=== PATIENT | female | born 1980 | race Caucasian/White ===

== ENCOUNTER 2018-09-21 12:19 | Emergency (ER) | payer MEDICAID, OTHER ==
[~2018-09-21] VITALS: Ht 172.7 cm; Wt 77.3 kg
[~2018-09-21 12:19] MED LIST: DIPH50 PO; DIVA500T2 PO; LURA40 PO
[2018-09-21] MEDS ORDERED: QUET100T PO (12:38)
[2018-09-21] MEDS ORDERED: DEXAMETHASONE 4 MG TABLET PO ONE (13:45)
[2018-09-21] MEDS ORDERED: KETOROLAC TROMETHAMINE 60 MG/2 ML VIAL IM ONE (13:45)
[2018-09-21] MEDS ORDERED: DIAZEPAM 5 MG/ML 2 ML SYRINGE IM ONE (13:45)
[2018-09-21] MEDS ORDERED: CYCLOBENZAPRINE HCL 10 MG TABLET PO ONE (14:00)
[2018-09-21 15:09] VITALS: BP 122/85
== END 2018-09-21 15:10 | disposition home or self-care (01) ==
LOC: EMS 12:21
DX: M62.838 Other muscle spasm (principal); Q68.0 Congenital deformity of sternocleidomastoid muscle; I10 Essential (primary) hypertension; E78.00 Pure hypercholesterolemia, unspecified; F32.9 Major depressive disorder, single episode, unspecified; F20.9 Schizophrenia, unspecified; F11.90 Opioid use, unspecified, uncomplicated; F14.90 Cocaine use, unspecified, uncomplicated; F15.90 Other stimulant use, unspecified, uncomplicated
CPT/HCPCS: 96372; 99283; J1885; J8540

== ENCOUNTER 2018-09-26 11:03 | Inpatient (IN) | payer MEDICAID, OTHER ==
[~2018-09-26] VITALS: Ht 172.7 cm; Wt 79.2 kg
[~2018-09-26 11:03] MED LIST changes: -DIPH50 PO; -DIVA500T2 PO; -LURA40 PO; +QUET100T PO
[2018-09-26] MEDS ORDERED: PRAZ1 PO (11:45)
[2018-09-26] MEDS ORDERED: ZIPR60CA2 PO (11:45)
[2018-09-26] MEDS ORDERED: NALT50TA6 PO (11:45)
[2018-09-26 12:14] LABS: AMPHET/METH SCREEN,URINE NEGATIVE (NEGATIVE); BARBITURATE SCREEN, URINE NEGATIVE (NEGATIVE); BENZODIAZEPINES SCREEN,URINE NEGATIVE (NEGATIVE); CANNABINOID SCREEN,URINE NEGATIVE (NEGATIVE); COCAINE SCREEN,URINE NEGATIVE (NEGATIVE); METHADONE SCREEN, URINE NEGATIVE (NEGATIVE); OPIATE SCREEN,URINE NEGATIVE (NEGATIVE)
[2018-09-26 12:15] LABS: PHENCYCLIDINE SCREEN,URINE NEGATIVE (NEGATIVE)
[2018-09-26] MEDS ORDERED: IBUPROFEN 400 MG TABLET PO PRN (12:15)
[2018-09-26] MEDS ORDERED: HALOPERIDOL 5 MG TABLET PO PRN (12:15)
[2018-09-26] MEDS ORDERED: ACETAMINOPHEN 325 MG TABLET PO PRN (12:15)
[2018-09-26] MEDS ORDERED: ZOLPIDEM TARTRATE 10 MG TABLET PO PRN (12:15)
[2018-09-26 12:16] LABS: BASOPHILS % (AUTO) 0.2 % (0.0-2.0); EOSINOPHILS % (AUTO) 0 % (1.0-6.0); HEMOGLOBIN 12.5 g/dL (12.0-16.0); LYMPHOCYTES # (AUTO) 0.8 K/uL (1.0-4.8); LYMPHOCYTES % (AUTO) 10.2 % (22.0-44.0); MEAN CORPUSCULAR HEMOGLOBIN 28.7 pg (26.0-34.0); MEAN CORPUSCULAR VOLUME 87 fL (80-100); MONOCYTES # (AUTO) 0.1 K/uL (0.1-1.0); MONOCYTES % (AUTO) 1.2 % (2.0-9.0); NEUTROPHILS # (AUTO) 6.8 K/uL (1.8-7.7); PLATELET COUNT (AUTO) 392 K/uL (150-450); RED BLOOD CELL COUNT(AUTO) 4.37 MIL/uL (4.00-5.20); RED CELL DISTRIBUTION WIDTH 13.4 % (11.5-14.5)
[2018-09-26 12:17] LABS: NEUTROPHILS % (AUTO) 88.4 % (40.0-70.0)
[2018-09-26 12:24] LABS: ANION GAP 11 mmol/L (8-16); CARBON DIOXIDE 24 mmol/L (22-29); CHLORIDE 104 mmol/L (98-107); CREATININE 0.74 mg/dL (0.60-1.30); GLOMERULAR FILTR. RATE CALC > 60 mL/min (>60); GLUCOSE,RANDOM 169 mg/dL (70-110); POTASSIUM 4.2 mmol/L (3.5-5.1); SODIUM SERUM 139 mmol/L (136-145); UREA NITROGEN, BLOOD 19 mg/dL (7-18)
[2018-09-26 12:43] LABS: APPEARANCE,URINE CLEAR (CLEAR); BILIRUBIN,URINE NEGATIVE (NEGATIVE); GLUCOSE, URINE (UA) NEGATIVE (NEGATIVE); KETONES,URINE NEGATIVE (NEGATIVE); LEUKOCYTE ESTERASE ,URINE MODERATE (NEGATIVE); NITRATE,URINE NEGATIVE (NEGATIVE); OCCULT BLOOD,URINE NEGATIVE (NEGATIVE); PH,URINE 5.5 (5.0-8.0); PROTEIN,URINE NEGATIVE (NEGATIVE); UROBILINOGEN,URINE 0.2 mg/dL (<=1.0)
[2018-09-26 12:51] LABS: ALANINE AMINOTRANSFERASE 41 U/L (12-78); ALBUMIN 3.7 g/dL (3.4-5.0); ALKALINE PHOSPHATASE 67 U/L (46-116); ASPARTATE AMINOTRANSFERASE 20 U/L (15-37); BILIRUBIN,TOTAL 0.3 mg/dL (0.1-1.0); HCG,QUANTITATIVE < 1 mIU/mL (0-6)
[2018-09-26 13:07] LABS: BACTERIA,URINE Rare /HPF (None Seen); RBC,URINE 0-2 /HPF (0-2); SQUAMOUS EPITHELIAL CELL,UR Few /LPF (None Seen)
[2018-09-26 20:12] VITALS: BP 123/83
[2018-09-26] MEDS ORDERED: PNEUMOCOCCAL VACCINE POLYVALENT 0.5 ML VIAL [PPSV23] IM ONE (21:00)
[2018-09-26] MEDS: LORazepam 2 MG TABLET PO PRN (21:40)
[2018-09-27 02:26] VITALS: BP 123/83
[2018-09-27 08:30] VITALS: BP 140/82
[2018-09-27] MEDS: LORazepam 2 MG TABLET PO PRN (09:10)
[2018-09-27 09:12] LABS: BASOPHILS % (AUTO) 0.5 % (0.0-2.0); EOSINOPHILS % (AUTO) 0.9 % (1.0-6.0); HEMATOCRIT 39.5 % (36-46); HEMOGLOBIN 12.9 g/dL (12.0-16.0); LYMPHOCYTES % (AUTO) 36.6 % (22.0-44.0); MEAN CORPUSCULAR HGB CONC 32.7 G/dL (31.0-37.0); MEAN CORPUSCULAR VOLUME 89 fL (80-100); MONOCYTES # (AUTO) 0.5 K/uL (0.1-1.0); MONOCYTES % (AUTO) 6.4 % (2.0-9.0); NEUTROPHILS # (AUTO) 4.6 K/uL (1.8-7.7); NEUTROPHILS % (AUTO) 55.6 % (40.0-70.0); PLATELET COUNT (AUTO) 388 K/uL (150-450); RED BLOOD CELL COUNT(AUTO) 4.46 MIL/uL (4.00-5.20); RED CELL DISTRIBUTION WIDTH 13.9 % (11.5-14.5)
[2018-09-27 09:23] LABS: AMPHET/METH SCREEN,URINE NEGATIVE (NEGATIVE); BARBITURATE SCREEN, URINE NEGATIVE (NEGATIVE); BENZODIAZEPINES SCREEN,URINE NEGATIVE (NEGATIVE); CANNABINOID SCREEN,URINE NEGATIVE (NEGATIVE); COCAINE SCREEN,URINE NEGATIVE (NEGATIVE); METHADONE SCREEN, URINE NEGATIVE (NEGATIVE); OPIATE SCREEN,URINE NEGATIVE (NEGATIVE)
[2018-09-27 09:26] LABS: PHENCYCLIDINE SCREEN,URINE NEGATIVE (NEGATIVE)
[2018-09-27 09:30] LABS: HEMOGLOBIN A1C 5.5 % (4.5-6.2)
[2018-09-27] MEDS ORDERED: DOCUSATE SODIUM 100 MG CAPSULE PO PRN (09:30)
[2018-09-27] MEDS ORDERED: ONDANSETRON HCL 4 MG TABLET PO PRN (09:30)
[2018-09-27] MEDS ORDERED: ALBUTEROL SULFATE HFA 90 MCG/PUFF 8 GM INHALER IH PRN (09:30)
[2018-09-27] MEDS ORDERED: GuaiFENesin/D-METHORPHAN [SUGAR-FREE] 200-20MG/10 ML SYRUP UDCUP PO PRN (09:30)
[2018-09-27] MEDS ORDERED: MAGNESIUM HYDROXIDE SUSPENSION 30 ML UDCUP PO PRN (09:30)
[2018-09-27] MEDS ORDERED: CloNIDine HCL 0.1 MG TABLET PO PRN (09:30)
[2018-09-27] MEDS ORDERED: LOPERAMIDE HCL 2 MG CAPSULE PO PRN (09:30)
[2018-09-27] MEDS ORDERED: MAG HYDROX/AL HYDROX/SIMETH ES 30 ML SUSPENSION UDCUP PO PRN (09:30)
[2018-09-27] MEDS ORDERED: PETROLATUM,WHITE 28 GM JELLY TP PRN (09:30)
[2018-09-27] MEDS ORDERED: ACETAMINOPHEN 325 MG TABLET PO PRN (09:30)
[2018-09-27 09:40] LABS: ALANINE AMINOTRANSFERASE 35 U/L (12-78); ALBUMIN 3.6 g/dL (3.4-5.0); ALKALINE PHOSPHATASE 62 U/L (46-116); ANION GAP 10 mmol/L (8-16); ASPARTATE AMINOTRANSFERASE 17 U/L (15-37); BILIRUBIN,TOTAL 0.3 mg/dL (0.1-1.0); CALCIUM, TOTAL 8.8 mg/dL (8.8-10.5); CARBON DIOXIDE 28 mmol/L (22-29); CHLORIDE 100 mmol/L (98-107); CHOL/HDL RATIO 1.8 (3.9-5.7); CHOLESTEROL 194 mg/dL (131-200); CREATININE 0.71 mg/dL (0.60-1.30); GLOMERULAR FILTR. RATE CALC > 60 mL/min (>60); GLUCOSE,RANDOM 106 mg/dL (70-110); HDL CHOLESTEROL 106 mg/dL (40-60); LDL CHOL (CALC.) 64 mg/dL (0-130); SODIUM SERUM 138 mmol/L (136-145); THYROID STIMULATING HORMONE 0.67 uIU/mL (0.36-3.74); TOTAL PROTEIN, SERUM 7.4 g/dL (6.4-8.2); TRIGLYCERIDES 118 mg/dL (15-150); UREA NITROGEN, BLOOD 23 mg/dL (7-18)
[2018-09-27 09:43] LABS: APPEARANCE,URINE TURBID (CLEAR); BILIRUBIN,URINE NEGATIVE (NEGATIVE); GLUCOSE, URINE (UA) NEGATIVE (NEGATIVE); KETONES,URINE NEGATIVE (NEGATIVE); LEUKOCYTE ESTERASE ,URINE LARGE (NEGATIVE); NITRATE,URINE NEGATIVE (NEGATIVE); OCCULT BLOOD,URINE NEGATIVE (NEGATIVE); PROTEIN,URINE NEGATIVE (NEGATIVE)
[2018-09-27] MEDS: NICOTINE 14 MG/24 HOUR PATCH TD PRN (09:48)
[2018-09-27 10:01] LABS: BACTERIA,URINE Many /HPF (None Seen); RBC,URINE None Seen /HPF (0-2); SQUAMOUS EPITHELIAL CELL,UR Few /LPF (None Seen)
[2018-09-27] MEDS: IBUPROFEN 400 MG TABLET PO PRN (10:10)
[2018-09-27] MEDS: ARIPiprazole 5 MG TABLET PO SCH (12:54)
[2018-09-27] MEDS: BENZOCAINE 20% 11.9 GM GEL TP PRN (12:57)
[2018-09-27] MEDS: CIPROFLOXACIN HCL 250 MG TABLET PO SCH (16:13)
[2018-09-27 16:28] VITALS: BP 130/93
[2018-09-27 18:16] VITALS: BP 155/99
[2018-09-27] MEDS ORDERED: CYCLOBENZAPRINE HCL 10 MG TABLET PO ONE (19:00)
[2018-09-27] MEDS ORDERED: KETOROLAC TROMETHAMINE 30 MG/ML VIAL IM ONE (19:00)
[2018-09-27] MEDS: MIRTAZAPINE 15 MG TABLET PO SCH (20:08)
[2018-09-28 00:26] VITALS: BP 121/76
[2018-09-28] MEDS: IBUPROFEN 400 MG TABLET PO PRN ×2 (05:51→20:01)
[2018-09-28 08:17] VITALS: BP 118/93
[2018-09-28] MEDS: LORazepam 2 MG TABLET PO PRN ×2 (09:10→20:01)
[2018-09-28] MEDS: CIPROFLOXACIN HCL 250 MG TABLET PO SCH ×2 (09:11→17:20)
[2018-09-28] MEDS: ARIPiprazole 5 MG TABLET PO SCH (09:11)
[2018-09-28 09:48] VITALS: BP 145/92
[2018-09-28] MEDS: CYCLOBENZAPRINE HCL 10 MG TABLET PO PRN ×2 (09:48→20:01)
[2018-09-28 19:51] VITALS: BP 145/93
[2018-09-28 19:57] VITALS: BP 145/93
[2018-09-28] MEDS: MIRTAZAPINE 15 MG TABLET PO SCH (21:08)
[2018-09-29 01:24] VITALS: BP 130/86
[2018-09-29 08:29] VITALS: BP 119/84
[2018-09-29] MEDS: CIPROFLOXACIN HCL 250 MG TABLET PO SCH ×2 (08:32→16:18)
[2018-09-29] MEDS: LORazepam 2 MG TABLET PO PRN (08:53)
[2018-09-29] MEDS: NICOTINE 14 MG/24 HOUR PATCH TD PRN (09:03)
[2018-09-29] MEDS: ARIPiprazole 5 MG TABLET PO SCH (09:04)
[2018-09-29] MEDS: BENZOCAINE 20% 11.9 GM GEL TP PRN (11:00)
[2018-09-29] MEDS: IBUPROFEN 400 MG TABLET PO PRN (11:16)
[2018-09-29 16:24] VITALS: BP 124/93
[2018-09-29 18:00] VITALS: BP 139/91
[2018-09-29] MEDS: MIRTAZAPINE 15 MG TABLET PO SCH (20:40)
[2018-09-30 01:12] VITALS: BP 126/80
[2018-09-30 04:03] VITALS: BP 120/81
[2018-09-30] MEDS: IBUPROFEN 400 MG TABLET PO PRN (04:04)
[2018-09-30 08:44] VITALS: BP 123/84
[2018-09-30] MEDS: ARIPiprazole 5 MG TABLET PO SCH (09:49)
[2018-09-30] MEDS: CIPROFLOXACIN HCL 250 MG TABLET PO SCH ×2 (09:50→15:56)
[2018-09-30] MEDS: LORazepam 2 MG TABLET PO PRN ×2 (11:16→15:56)
[2018-09-30] MEDS: NICOTINE 14 MG/24 HOUR PATCH TD PRN (15:55)
[2018-09-30 16:37] VITALS: BP 137/91
[2018-09-30] MEDS: BENZOCAINE 20% 11.9 GM GEL TP PRN (17:50)
[2018-09-30] MEDS: MIRTAZAPINE 30 MG TABLET PO SCH (21:08)
[2018-10-01 04:40] VITALS: BP 113/94
[2018-10-01 08:47] VITALS: BP 123/72
[2018-10-01] MEDS: CYCLOBENZAPRINE HCL 10 MG TABLET PO PRN ×2 (09:25→19:26)
[2018-10-01] MEDS: ARIPiprazole 5 MG TABLET PO SCH (09:26)
[2018-10-01] MEDS: CIPROFLOXACIN HCL 250 MG TABLET PO SCH ×2 (09:26→18:24)
[2018-10-01 16:29] VITALS: BP 116/72
[2018-10-01 19:30] VITALS: BP 121/89
[2018-10-01] MEDS: MIRTAZAPINE 30 MG TABLET PO SCH (20:52)
[2018-10-02 00:33] VITALS: BP 112/68
[2018-10-02] MEDS: IBUPROFEN 400 MG TABLET PO PRN (05:55)
[2018-10-02 08:12] VITALS: BP 123/88
[2018-10-02] MEDS: ARIPiprazole 5 MG TABLET PO SCH (08:45)
[2018-10-02] MEDS: CIPROFLOXACIN HCL 250 MG TABLET PO SCH (08:45)
[2018-10-02] MEDS ORDERED: MIRT30 PO (09:30)
[2018-10-02] MEDS ORDERED: CIPR-279 PO (09:30)
[2018-10-02] MEDS ORDERED: ARIP5TAB8 PO (09:30)
== END 2018-10-02 11:30 | disposition home or self-care (01) | DRG 751 ==
LOC: EMS 11:03 → B2S 18:36
PROVIDERS: ADMIT Psychiatry & Neurology Psychiatry; ATTEND Psychiatry & Neurology Psychiatry
DX: F33.3 Major depressive disorder, recurrent, severe with psychotic symptoms (principal); R56.9 Unspecified convulsions; R45.851 Suicidal ideations; E78.00 Pure hypercholesterolemia, unspecified; E78.5 Hyperlipidemia, unspecified; F10.10 Alcohol abuse, uncomplicated; F19.90 Other psychoactive substance use, unspecified, uncomplicated; F41.9 Anxiety disorder, unspecified; I10 Essential (primary) hypertension; N39.0 Urinary tract infection, site not specified; F14.90 Cocaine use, unspecified, uncomplicated; F60.3 Borderline personality disorder; Z91.19 Patient's noncompliance with other medical treatment and regimen
CPT/HCPCS: 83036; 84443; 87086; 90732; G0480; J1885; Q0162

== ENCOUNTER 2019-06-28 07:56 | Emergency (ER) | payer MEDICAID, OTHER ==
[~2019-06-28] VITALS: Ht 170.2 cm; Wt 59.1 kg
[~2019-06-28 07:56] MED LIST changes: +ARIP5TAB8 PO; +CIPR-279 PO; +MIRT30 PO; -QUET100T PO
[2019-06-28 09:33] LABS: BASOPHILS % (AUTO) 0.7 % (0.0-2.0); EOSINOPHILS % (AUTO) 1.9 % (1.0-6.0); HEMOGLOBIN 12.6 g/dL (12.0-16.0); MEAN CORPUSCULAR HEMOGLOBIN 29.9 pg (26.0-34.0); MEAN CORPUSCULAR HGB CONC 34.1 G/dL (31.0-37.0); MEAN CORPUSCULAR VOLUME 88 fL (80-100); MONOCYTES # (AUTO) 0.5 K/uL (0.1-1.0); MONOCYTES % (AUTO) 7.5 % (2.0-9.0); NEUTROPHILS # (AUTO) 3.5 K/uL (1.8-7.7); NEUTROPHILS % (AUTO) 57.9 % (40.0-70.0); PLATELET COUNT (AUTO) 359 K/uL (150-450); RED BLOOD CELL COUNT(AUTO) 4.21 MIL/uL (4.00-5.20); RED CELL DISTRIBUTION WIDTH 13.3 % (11.5-14.5)
[2019-06-28 09:41] LABS: ANION GAP 6 mmol/L (8-16); CALCIUM, TOTAL 8.5 mg/dL (8.8-10.5); CARBON DIOXIDE 28 mmol/L (22-29); CHLORIDE 104 mmol/L (98-107); CREATININE 0.67 mg/dL (0.60-1.30); GLOMERULAR FILTR. RATE CALC > 60 mL/min (>60); GLUCOSE,RANDOM 78 mg/dL (70-110); POTASSIUM 3.2 mmol/L (3.5-5.1); SODIUM SERUM 138 mmol/L (136-145)
[2019-06-28] MEDS ORDERED: IBUPROFEN 600 MG TABLET PO ONE (09:45)
[2019-06-28] MEDS ORDERED: CIPROFLOXACIN HCL 0.2%/HYDROCORT 1% 10 ML OTIC SUSPENSION AS ONE (09:45)
[2019-06-28 09:53] LABS: ALANINE AMINOTRANSFERASE 46 U/L (12-78); ALBUMIN 3.7 g/dL (3.4-5.0); ALKALINE PHOSPHATASE 63 U/L (46-116); ASPARTATE AMINOTRANSFERASE 26 U/L (15-37); BILIRUBIN,TOTAL 0.2 mg/dL (0.1-1.0); HCG,QUANTITATIVE 162 mIU/mL (0-6); TOTAL PROTEIN, SERUM 7.4 g/dL (6.4-8.2); UREA NITROGEN, BLOOD 8 mg/dL (7-18)
[2019-06-28 10:48] LABS: APPEARANCE,URINE CLEAR (CLEAR); BILIRUBIN,URINE NEGATIVE (NEGATIVE); GLUCOSE, URINE (UA) NEGATIVE (NEGATIVE); KETONES,URINE NEGATIVE (NEGATIVE); NITRATE,URINE NEGATIVE (NEGATIVE); OCCULT BLOOD,URINE NEGATIVE (NEGATIVE); PROTEIN,URINE NEGATIVE (NEGATIVE); UROBILINOGEN,URINE 0.2 mg/dL (<=1.0)
[2019-06-28 10:53] LABS: AMPHET/METH SCREEN,URINE NEGATIVE (NEGATIVE); BARBITURATE SCREEN, URINE NEGATIVE (NEGATIVE); BENZODIAZEPINES SCREEN,URINE POSITIVE (NEGATIVE); CANNABINOID SCREEN,URINE NEGATIVE (NEGATIVE); COCAINE SCREEN,URINE NEGATIVE (NEGATIVE); METHADONE SCREEN, URINE NEGATIVE (NEGATIVE); OPIATE SCREEN,URINE NEGATIVE (NEGATIVE); PHENCYCLIDINE SCREEN,URINE NEGATIVE (NEGATIVE)
[2019-06-28 10:59] LABS: BACTERIA,URINE None Seen /HPF (None Seen); LEUKOCYTE ESTERASE ,URINE TRACE (NEGATIVE); RBC,URINE None Seen /HPF (0-2); WBC,URINE 0-2 /HPF (0-5)
[2019-06-28] MEDS ORDERED: POTASSIUM CHLORIDE 20 MEQ ER TABLET PO ONE (12:45)
[2019-06-28 12:50] VITALS: BP 129/78
== END 2019-06-28 12:51 | disposition home or self-care (01) ==
LOC: EMS 07:58
DX: O99.341 Other mental disorders complicating pregnancy, first trimester (principal); O16.1 Unspecified maternal hypertension, first trimester; O26.891 Other specified pregnancy related conditions, first trimester; F20.9 Schizophrenia, unspecified; H60.92 Unspecified otitis externa, left ear; I10 Essential (primary) hypertension; E78.00 Pure hypercholesterolemia, unspecified; F14.90 Cocaine use, unspecified, uncomplicated; F11.90 Opioid use, unspecified, uncomplicated; Z3A.01 Less than 8 weeks gestation of pregnancy; Z79.899 Other long term (current) drug therapy
CPT/HCPCS: 36415; 80053; 80307; 81001; 84702; 85025; 99284; G0480

== ENCOUNTER 2020-04-25 01:43 | Emergency (ER) | payer OTHER ==
[~2020-04-25 01:43] MED LIST changes: -CIPR-279 PO
== END 2020-04-25 03:18 | disposition left against medical advice (07) ==
LOC: EMS 01:45
DX: Z00.00 Encounter for general adult medical examination without abnormal findings (principal); Z53.21 Procedure and treatment not carried out due to patient leaving prior to being seen by health care provider

== ENCOUNTER 2020-04-25 04:18 | Emergency (ER) | payer OTHER ==
[~2020-04-25] VITALS: Ht 172.7 cm; Wt 46.8 kg
[2020-04-25 06:02] LABS: COVID AG,FIA SOURCE NASOPHARYNGEAL
[2020-04-25 06:02] LABS: BASOPHILS % (AUTO) 0.9 % (0.0-2.0); EOSINOPHILS % (AUTO) 2.7 % (1.0-6.0); HEMOGLOBIN 11.5 g/dL (12.0-16.0); LYMPHOCYTES # (AUTO) 2.1 K/uL (1.0-4.8); LYMPHOCYTES % (AUTO) 29.3 % (22.0-44.0); MEAN CORPUSCULAR HEMOGLOBIN 27.7 pg (26.0-34.0); MEAN CORPUSCULAR VOLUME 82 fL (80-100); MONOCYTES # (AUTO) 0.7 K/uL (0.1-1.0); MONOCYTES % (AUTO) 9.9 % (2.0-9.0); NEUTROPHILS # (AUTO) 4.2 K/uL (1.8-7.7); NEUTROPHILS % (AUTO) 57.2 % (40.0-70.0); PLATELET COUNT (AUTO) 407 K/uL (150-450); RED BLOOD CELL COUNT(AUTO) 4.17 MIL/uL (4.00-5.20); RED CELL DISTRIBUTION WIDTH 16.6 % (11.5-14.5)
[2020-04-25 06:12] LABS: ANION GAP 7 mmol/L (8-16); CALCIUM, TOTAL 9.3 mg/dL (8.8-10.5); CARBON DIOXIDE 28 mmol/L (22-29); CHLORIDE 101 mmol/L (98-107); CREATININE 0.75 mg/dL (0.60-1.30); GLOMERULAR FILTR. RATE CALC > 60 mL/min (>60); GLUCOSE,RANDOM 78 mg/dL (70-110); POTASSIUM 4.2 mmol/L (3.5-5.1); SODIUM SERUM 136 mmol/L (136-145); UREA NITROGEN, BLOOD 17 mg/dL (7-18)
[2020-04-25 06:17] LABS: AMPHET/METH SCREEN,URINE POSITIVE (NEGATIVE); BARBITURATE SCREEN, URINE NEGATIVE (NEGATIVE); BENZODIAZEPINES SCREEN,URINE NEGATIVE (NEGATIVE); CANNABINOID SCREEN,URINE NEGATIVE (NEGATIVE); COCAINE SCREEN,URINE NEGATIVE (NEGATIVE); METHADONE SCREEN, URINE NEGATIVE (NEGATIVE); OPIATE SCREEN,URINE NEGATIVE (NEGATIVE)
[2020-04-25 06:18] LABS: PHENCYCLIDINE SCREEN,URINE NEGATIVE (NEGATIVE)
[2020-04-25 06:34] LABS: ALANINE AMINOTRANSFERASE 37 U/L (12-78); ALBUMIN 3.7 g/dL (3.4-5.0); ALKALINE PHOSPHATASE 81 U/L (46-116); ASPARTATE AMINOTRANSFERASE 42 U/L (15-37); BILIRUBIN,TOTAL 0.3 mg/dL (0.1-1.0); HCG,QUANTITATIVE 1 mIU/mL (0-6)
[2020-04-25 06:45] VITALS: BP 127/81
== END 2020-04-25 06:55 | disposition home or self-care (01) ==
LOC: EMS 04:21
DX: F20.9 Schizophrenia, unspecified (principal); F14.90 Cocaine use, unspecified, uncomplicated; F11.90 Opioid use, unspecified, uncomplicated; F19.90 Other psychoactive substance use, unspecified, uncomplicated; F32.9 Major depressive disorder, single episode, unspecified; E78.00 Pure hypercholesterolemia, unspecified; I10 Essential (primary) hypertension; Z20.828 Contact with and (suspected) exposure to other viral communicable diseases
CPT/HCPCS: 36415; 80053; 80307; 84702; 85025; 87426; 99283; G0480

== ENCOUNTER 2020-05-07 22:10 | Emergency (ER) | payer OTHER ==
[~2020-05-07] VITALS: Ht 167.6 cm; Wt 74.1 kg
[2020-05-07 22:37] LABS: BASOPHILS % (AUTO) 0.7 % (0.0-2.0); EOSINOPHILS % (AUTO) 1.9 % (1.0-6.0); HEMATOCRIT 38.1 % (36-46); HEMOGLOBIN 12.8 g/dL (12.0-16.0); LYMPHOCYTES # (AUTO) 1.6 K/uL (1.0-4.8); LYMPHOCYTES % (AUTO) 38.7 % (22.0-44.0); MEAN CORPUSCULAR HEMOGLOBIN 28.1 pg (26.0-34.0); MEAN CORPUSCULAR HGB CONC 33.5 G/dL (31.0-37.0); MEAN CORPUSCULAR VOLUME 84 fL (80-100); MONOCYTES # (AUTO) 0.5 K/uL (0.1-1.0); MONOCYTES % (AUTO) 11.7 % (2.0-9.0); NEUTROPHILS # (AUTO) 1.9 K/uL (1.8-7.7); PLATELET COUNT (AUTO) 432 K/uL (150-450); RED BLOOD CELL COUNT(AUTO) 4.55 MIL/uL (4.00-5.20); RED CELL DISTRIBUTION WIDTH 16.5 % (11.5-14.5)
[2020-05-07 22:55] LABS: ANION GAP 7 mmol/L (8-16); CALCIUM, TOTAL 9.7 mg/dL (8.8-10.5); CARBON DIOXIDE 30 mmol/L (22-29); CHLORIDE 102 mmol/L (98-107); CREATININE 0.78 mg/dL (0.60-1.30); GLOMERULAR FILTR. RATE CALC > 60 mL/min (>60); GLUCOSE,RANDOM 131 mg/dL (70-110); POTASSIUM 3.3 mmol/L (3.5-5.1); SODIUM SERUM 139 mmol/L (136-145); UREA NITROGEN, BLOOD 13 mg/dL (7-18)
[2020-05-07 23:06] LABS: ALANINE AMINOTRANSFERASE 46 U/L (12-78); ALBUMIN 4.1 g/dL (3.4-5.0); ALKALINE PHOSPHATASE 93 U/L (46-116); ASPARTATE AMINOTRANSFERASE 36 U/L (15-37); BILIRUBIN,TOTAL 0.6 mg/dL (0.1-1.0); HCG,QUANTITATIVE 1 mIU/mL (0-6); TOTAL PROTEIN, SERUM 8.6 g/dL (6.4-8.2)
[2020-05-08 02:28] LABS: COVID AG,FIA SOURCE NASOPHARYNGEAL
[2020-05-08] MEDS ORDERED: POTASSIUM CHLORIDE 20 MEQ ER TABLET PO ONE (03:30)
[2020-05-08 03:52] VITALS: BP 145/80
== END 2020-05-08 04:17 | disposition home or self-care (01) ==
LOC: EMS 22:10
DX: F15.10 Other stimulant abuse, uncomplicated (principal); F32.9 Major depressive disorder, single episode, unspecified; I10 Essential (primary) hypertension; E78.00 Pure hypercholesterolemia, unspecified; F20.9 Schizophrenia, unspecified; F14.90 Cocaine use, unspecified, uncomplicated; F11.90 Opioid use, unspecified, uncomplicated; Z20.828 Contact with and (suspected) exposure to other viral communicable diseases
CPT/HCPCS: 36415; 80053; 84702; 85025; 87426; 99283; G0480

== ENCOUNTER 2021-03-11 16:50 | Emergency (ER) | payer OTHER ==
[~2021-03-11] VITALS: Ht 162.6 cm; Wt 60.9 kg
[~2021-03-11 16:50] MED LIST changes: +ARIP5TAB37 PO; -ARIP5TAB8 PO
[2021-03-11 17:10] VITALS: BP 131/80
[2021-03-11 17:42] LABS: EOSINOPHILS % (AUTO) 1.1 % (1.0-6.0); HEMATOCRIT 36.7 % (36-46); HEMOGLOBIN 12.1 g/dL (12.0-16.0); LYMPHOCYTES # (AUTO) 2.6 K/uL (1.0-4.8); LYMPHOCYTES % (AUTO) 36.9 % (22.0-44.0); MEAN CORPUSCULAR HEMOGLOBIN 27.8 pg (26.0-34.0); MEAN CORPUSCULAR HGB CONC 32.9 G/dL (31.0-37.0); MEAN CORPUSCULAR VOLUME 85 fL (80-100); MONOCYTES # (AUTO) 0.6 K/uL (0.1-1.0); MONOCYTES % (AUTO) 8.4 % (2.0-9.0); NEUTROPHILS # (AUTO) 3.7 K/uL (1.8-7.7); NEUTROPHILS % (AUTO) 52.6 % (40.0-70.0); PLATELET COUNT (AUTO) 457 K/uL (150-450); RED BLOOD CELL COUNT(AUTO) 4.34 MIL/uL (4.00-5.20); RED CELL DISTRIBUTION WIDTH 14.5 % (11.5-14.5)
[2021-03-11 17:50] LABS: ANION GAP 7 mmol/L (8-16); CALCIUM, TOTAL 8.8 mg/dL (8.8-10.5); CARBON DIOXIDE 29 mmol/L (22-29); CHLORIDE 105 mmol/L (98-107); CREATININE 0.84 mg/dL (0.60-1.30); GLOMERULAR FILTR. RATE CALC > 60 mL/min (>60); GLUCOSE,RANDOM 92 mg/dL (70-110); POTASSIUM 3.9 mmol/L (3.5-5.1); SODIUM SERUM 141 mmol/L (136-145); UREA NITROGEN, BLOOD 22 mg/dL (7-18)
[2021-03-11 17:56] LABS: ALANINE AMINOTRANSFERASE 35 U/L (12-78); ALBUMIN 3.8 g/dL (3.4-5.0); ALKALINE PHOSPHATASE 75 U/L (46-116); ASPARTATE AMINOTRANSFERASE 29 U/L (15-37); BILIRUBIN,TOTAL 0.3 mg/dL (0.1-1.0)
[2021-03-11 18:06] LABS: AMPHET/METH SCREEN,URINE POSITIVE (NEGATIVE); BARBITURATE SCREEN, URINE NEGATIVE (NEGATIVE); BENZODIAZEPINES SCREEN,URINE NEGATIVE (NEGATIVE); CANNABINOID SCREEN,URINE NEGATIVE (NEGATIVE); COCAINE SCREEN,URINE NEGATIVE (NEGATIVE); METHADONE SCREEN, URINE NEGATIVE (NEGATIVE); OPIATE SCREEN,URINE NEGATIVE (NEGATIVE)
[2021-03-11 18:08] LABS: PHENCYCLIDINE SCREEN,URINE NEGATIVE (NEGATIVE)
[2021-03-11] MEDS ORDERED: OLANZapine 5 MG TABLET PO ONE (18:15)
[2021-03-11] MEDS ORDERED: LORazepam 1 MG TABLET PO ONE (18:15)
== END 2021-03-11 19:23 | disposition home or self-care (01) ==
LOC: EMS 16:55
DX: F15.10 Other stimulant abuse, uncomplicated (principal); F25.9 Schizoaffective disorder, unspecified; Z59.00 Homelessness unspecified; F32.9 Major depressive disorder, single episode, unspecified; E78.00 Pure hypercholesterolemia, unspecified; I10 Essential (primary) hypertension; F14.90 Cocaine use, unspecified, uncomplicated; F11.90 Opioid use, unspecified, uncomplicated
CPT/HCPCS: 36415; 80053; 80307; 84703; 85025; 99283; G0480

== ENCOUNTER 2021-06-02 09:06 | Inpatient (IN) | payer MEDICAID ==
[~2021-06-02] VITALS: Ht 172.7 cm; Wt 65.5 kg
[2021-06-02] MEDS ORDERED: ZOLPIDEM TARTRATE 10 MG TABLET PO PRN (09:30)
[2021-06-02 16:14] VITALS: BP 120/74
[2021-06-02] MEDS ORDERED: INFLUENZA VIRUS VACCINE QVS 2021-22 (6MO+)/PF 60 MCG/0.5 ML SYRINGE IM. ONE (16:30)
[2021-06-03 00:10] VITALS: BP 114/68
[2021-06-03 07:36] LABS: BASOPHILS % (AUTO) 0.3 % (0.0-2.0); EOSINOPHILS % (AUTO) 0.5 % (1.0-6.0); HEMATOCRIT 34.2 % (36-46); HEMOGLOBIN 11.3 g/dL (12.0-16.0); LYMPHOCYTES # (AUTO) 1.4 K/uL (1.0-4.8); LYMPHOCYTES % (AUTO) 15.4 % (22.0-44.0); MEAN CORPUSCULAR HEMOGLOBIN 26.9 pg (26.0-34.0); MEAN CORPUSCULAR HGB CONC 33.1 G/dL (31.0-37.0); MEAN CORPUSCULAR VOLUME 81 fL (80-100); MONOCYTES # (AUTO) 0.8 K/uL (0.1-1.0); MONOCYTES % (AUTO) 8.5 % (2.0-9.0); NEUTROPHILS # (AUTO) 6.8 K/uL (1.8-7.7); NEUTROPHILS % (AUTO) 75.3 % (40.0-70.0); PLATELET COUNT (AUTO) 492 K/uL (150-450); RED CELL DISTRIBUTION WIDTH 14.2 % (11.5-14.5)
[2021-06-03 07:43] LABS: HEMOGLOBIN A1C 5.7 % (3.8-5.6)
[2021-06-03 07:58] LABS: ALANINE AMINOTRANSFERASE 29 U/L (12-78); ALBUMIN 2.9 g/dL (3.4-5.0); ALKALINE PHOSPHATASE 75 U/L (46-116); ANION GAP 7 mmol/L (8-16); ASPARTATE AMINOTRANSFERASE 20 U/L (15-37); BILIRUBIN,TOTAL 0.2 mg/dL (0.1-1.0); CALCIUM, TOTAL 8.5 mg/dL (8.8-10.5); CARBON DIOXIDE 27 mmol/L (22-29); CHLORIDE 106 mmol/L (98-107); CHOL/HDL RATIO 1.9 (3.9-5.7); CHOLESTEROL 136 mg/dL (131-200); CREATININE 0.53 mg/dL (0.60-1.30); FREE T4 (FREE THYROXINE) 0.95 ng/dL (0.76-1.46); GLOMERULAR FILTR. RATE CALC > 60 mL/min (>60); GLUCOSE,RANDOM 104 mg/dL (70-110); HCG,QUANTITATIVE < 1 mIU/mL (0-6); HDL CHOLESTEROL 72 mg/dL (40-60); LDL CHOL (CALC.) 45 mg/dL (0-130); POTASSIUM 4.6 mmol/L (3.5-5.1); SODIUM SERUM 140 mmol/L (136-145); THYROID STIMULATING HORMONE 0.46 uIU/mL (0.36-3.74); TOTAL PROTEIN, SERUM 7.1 g/dL (6.4-8.2); TRIGLYCERIDES 96 mg/dL (15-150); UREA NITROGEN, BLOOD 17 mg/dL (7-18)
[2021-06-03 08:24] VITALS: BP 140/97
[2021-06-03] MEDS ORDERED: CloNIDine HCL 0.1 MG TABLET PO PRN (09:15)
[2021-06-03] MEDS ORDERED: ONDANSETRON HCL 4 MG TABLET PO PRN (09:15)
[2021-06-03] MEDS ORDERED: MAGNESIUM HYDROXIDE SUSPENSION 30 ML UDCUP PO PRN (09:15)
[2021-06-03] MEDS ORDERED: ALBUTEROL SULFATE HFA 90 MCG/PUFF 8 GM INHALER IH PRN (09:15)
[2021-06-03] MEDS ORDERED: MAG HYDROX/AL HYDROX/SIMETH ES 30 ML SUSPENSION UDCUP PO PRN (09:15)
[2021-06-03] MEDS ORDERED: LOPERAMIDE HCL 2 MG CAPSULE PO PRN (09:15)
[2021-06-03] MEDS ORDERED: DOCUSATE SODIUM 100 MG CAPSULE PO PRN (09:15)
[2021-06-03] MEDS ORDERED: OMEPRAZOLE 20 MG CAPSULE PO PRN (09:15)
[2021-06-03] MEDS ORDERED: PETROLATUM,WHITE 28 GM JELLY TP PRN (09:15)
[2021-06-03] MEDS ORDERED: BACITRACIN 28 GM OINTMENT TP PRN (09:15)
[2021-06-03] MEDS ORDERED: ACETAMINOPHEN 325 MG TABLET PO PRN (09:15)
[2021-06-03] MEDS ORDERED: BENZOCAINE/MENTHOL LOZENGE PO PRN (09:15)
[2021-06-03] MEDS ORDERED: IBUPROFEN 600 MG TABLET PO PRN (09:15)
[2021-06-03 16:22] VITALS: BP 138/81
[2021-06-03] MEDS: QUEtiapine FUMARATE 200 MG TABLET PO SCH (20:10)
[2021-06-04 00:05] VITALS: BP 108/57
[2021-06-04] MEDS: QUEtiapine FUMARATE 100 MG TABLET PO SCH (08:33)
[2021-06-04 08:57] VITALS: BP 125/74
[2021-06-04 17:25] VITALS: BP 114/72
[2021-06-04] MEDS: QUEtiapine FUMARATE 200 MG TABLET PO SCH (20:21)
[2021-06-05 06:08] VITALS: BP 120/71
[2021-06-05 08:15] VITALS: BP 114/68
[2021-06-05] MEDS: QUEtiapine FUMARATE 100 MG TABLET PO SCH (10:17)
[2021-06-05 16:11] VITALS: BP 129/75
[2021-06-05] MEDS: QUEtiapine FUMARATE 200 MG TABLET PO SCH (20:49)
[2021-06-06 08:24] VITALS: BP 132/77
[2021-06-06] MEDS: QUEtiapine FUMARATE 100 MG TABLET PO SCH (08:37)
[2021-06-06] MEDS: SULFAMETHOX/TRIMETH DS 800-160 MG/TABLET PO SCH ×2 (08:38→17:00)
[2021-06-06] MEDS: LORazepam 2 MG TABLET PO PRN (08:42)
[2021-06-06 16:30] VITALS: BP 107/69
[2021-06-06] MEDS ORDERED: BACITRACIN 28 GM OINTMENT TP SCH (17:00)
[2021-06-06] MEDS: QUEtiapine FUMARATE 200 MG TABLET PO SCH (20:21)
[2021-06-07 01:16] VITALS: BP 100/78
[2021-06-07 08:20] VITALS: BP 118/79
[2021-06-07] MEDS: SULFAMETHOX/TRIMETH DS 800-160 MG/TABLET PO SCH ×2 (09:26→16:53)
[2021-06-07] MEDS: LORazepam 2 MG TABLET PO PRN ×2 (09:27→16:53)
[2021-06-07] MEDS: QUEtiapine FUMARATE 100 MG TABLET PO SCH (09:27)
[2021-06-07] MEDS: MUPIROCIN CALCIUM 2% 22 GM OINTMENT TP SCH (13:25)
[2021-06-07 16:25] VITALS: BP 128/76
[2021-06-07] MEDS: QUEtiapine FUMARATE 200 MG TABLET PO SCH (20:10)
[2021-06-08 00:25] VITALS: BP 120/75
[2021-06-08 08:15] VITALS: BP 118/73
[2021-06-08] MEDS: QUEtiapine FUMARATE 100 MG TABLET PO SCH (08:22)
[2021-06-08] MEDS: LORazepam 2 MG TABLET PO PRN (08:22)
[2021-06-08] MEDS: PHENAZOPYRIDINE HCL 100 MG TABLET PO SCH ×3 (08:22→16:15)
[2021-06-08] MEDS: SULFAMETHOX/TRIMETH DS 800-160 MG/TABLET PO SCH ×2 (08:23→16:15)
[2021-06-08] MEDS: MUPIROCIN CALCIUM 2% 22 GM OINTMENT TP SCH (08:23)
[2021-06-08 16:25] VITALS: BP 126/80
[2021-06-08] MEDS: QUEtiapine FUMARATE 200 MG TABLET PO SCH (20:06)
[2021-06-09 00:51] VITALS: BP 120/72
[2021-06-09] MEDS: PHENAZOPYRIDINE HCL 100 MG TABLET PO SCH ×3 (08:12→16:10)
[2021-06-09] MEDS: QUEtiapine FUMARATE 100 MG TABLET PO SCH (08:12)
[2021-06-09] MEDS: SULFAMETHOX/TRIMETH DS 800-160 MG/TABLET PO SCH ×2 (08:12→16:10)
[2021-06-09] MEDS: MUPIROCIN CALCIUM 2% 22 GM OINTMENT TP SCH (08:13)
[2021-06-09 08:15] VITALS: BP 100/60
[2021-06-09 16:24] VITALS: BP 128/80
[2021-06-09] MEDS: QUEtiapine FUMARATE 200 MG TABLET PO SCH (20:25)
[2021-06-10 03:26] VITALS: BP 110/86
[2021-06-10] MEDS: MULTIVITAMINS WITH MINERALS, THERAPEUTIC TABLET PO SCH (07:03)
[2021-06-10 07:22] LABS: COVID AG,FIA SOURCE NASOPHARYNGEAL
[2021-06-10 08:22] VITALS: BP 113/72
[2021-06-10] MEDS: QUEtiapine FUMARATE 100 MG TABLET PO SCH (08:28)
[2021-06-10] MEDS: MUPIROCIN CALCIUM 2% 22 GM OINTMENT TP SCH (08:29)
[2021-06-10] MEDS: PHENAZOPYRIDINE HCL 100 MG TABLET PO SCH ×3 (08:29→16:03)
[2021-06-10] MEDS: LORazepam 2 MG TABLET PO PRN (08:33)
[2021-06-10] MEDS: SULFAMETHOX/TRIMETH DS 800-160 MG/TABLET PO SCH ×2 (09:07→16:03)
[2021-06-10 16:05] VITALS: BP 116/64
[2021-06-10] MEDS: QUEtiapine FUMARATE 200 MG TABLET PO SCH (20:30)
[2021-06-11 01:22] VITALS: BP 112/74
[2021-06-11] MEDS: MULTIVITAMINS WITH MINERALS, THERAPEUTIC TABLET PO SCH (07:02)
[2021-06-11 08:15] VITALS: BP 116/69
[2021-06-11] MEDS: QUEtiapine FUMARATE 100 MG TABLET PO SCH (08:22)
[2021-06-11] MEDS: SULFAMETHOX/TRIMETH DS 800-160 MG/TABLET PO SCH (08:22)
[2021-06-11] MEDS: MUPIROCIN CALCIUM 2% 22 GM OINTMENT TP SCH (08:26)
[2021-06-11] MEDS ORDERED: QUET200T PO (12:30)
[2021-06-11] MEDS ORDERED: SULF-261 PO (12:30)
[2021-06-11] MEDS ORDERED: QUET100T PO (12:30)
== END 2021-06-11 15:55 | disposition home or self-care (01) | DRG 750 ==
LOC: B3A 12:09
PROVIDERS: ADMIT Psychiatry & Neurology Psychiatry; ATTEND Psychiatry & Neurology Psychiatry
DX: F20.9 Schizophrenia, unspecified (principal); F12.90 Cannabis use, unspecified, uncomplicated; F32.A Depression, unspecified; F41.9 Anxiety disorder, unspecified; K59.00 Constipation, unspecified; G47.00 Insomnia, unspecified; Z20.822 Contact with and (suspected) exposure to COVID-19; Z88.8 Allergy status to other drugs, medicaments and biological substances; Z71.6 Tobacco abuse counseling; Z72.0 Tobacco use; Z88.6 Allergy status to analgesic agent
CPT/HCPCS: 80053; 80061; 83036; 84436; 84439; 84443; 84702; 85025; 87070; G0480

== ENCOUNTER 2022-02-05 12:19 | Emergency (ER) | payer MEDICAID, OTHER ==
[~2022-02-05] VITALS: Ht 172.7 cm; Wt 68.2 kg
[~2022-02-05 12:19] MED LIST changes: -ARIP5TAB37 PO; -MIRT30 PO; +QUET100T PO; +QUET200T PO; +SULF-261 PO
[2022-02-05 12:33] VITALS: BP 113/68
[2022-02-05] MEDS ORDERED: ZIPR40CA38 PO (12:33)
[2022-02-05] MEDS ORDERED: DIPH25TA19 PO (12:33)
[2022-02-05] MEDS ORDERED: ALBU8HFA IH (12:33)
[2022-02-05] MEDS ORDERED: ZIPR60CA29 PO (12:33)
[2022-02-05] MEDS ORDERED: OXCA300T57 PO (12:33)
== END 2022-02-05 14:19 | disposition left against medical advice (07) ==
LOC: EMS 12:26
DX: Z53.21 Procedure and treatment not carried out due to patient leaving prior to being seen by health care provider (principal)

== ENCOUNTER 2024-08-17 20:25 | Inpatient (IN) | payer MEDICAID, OTHER ==
[~2024-08-17] VITALS: Ht 172.7 cm; Wt 83.0 kg
[~2024-08-17 20:25] MED LIST changes: +FLUO-177 PO; +FLUO-418 PO; +MELA5TAB40 PO; +NALT50TA33 PO; +OLAN5TAB94 PO; +OXCA300T28 PO; +OXCA300T70 PO; +PRAZ1 PO; -QUET100T PO; -QUET200T PO; -SULF-261 PO; +VALP250C48 PO; +VALP250S23 PO
[2024-08-17 22:12] LABS: COVID AG,FIA SOURCE NASAL SWAB
[2024-08-17 22:17] LABS: PH,URINE DRUG SCREEN 6.5 (5.0-8.0)
[2024-08-17 22:23] LABS: AMPHET/METH SCREEN,URINE POSITIVE (NEGATIVE); BARBITURATE SCREEN, URINE NEGATIVE (NEGATIVE); BENZODIAZEPINES SCREEN,URINE NEGATIVE (NEGATIVE); CANNABINOID SCREEN,URINE NEGATIVE (NEGATIVE); COCAINE SCREEN,URINE NEGATIVE (NEGATIVE); METHADONE SCREEN, URINE NEGATIVE (NEGATIVE); OPIATE SCREEN,URINE NEGATIVE (NEGATIVE); PHENCYCLIDINE SCREEN,URINE NEGATIVE (NEGATIVE)
[2024-08-17 22:24] LABS: ALCOHOL, URINE DRUG SCREEN NEGATIVE (NEGATIVE)
[2024-08-17 22:30] LABS: SARS-COV2 (COVID) ANTIGEN,FIA Negative (Negative)
[2024-08-17 22:33] LABS: BASOPHILS % (AUTO) 0.9 % (0.0-2.0); EOSINOPHILS % (AUTO) 3.3 % (1.0-6.0); HEMATOCRIT 37.5 % (36-46); HEMOGLOBIN 12.2 g/dL (12.0-16.0); LYMPHOCYTES # (AUTO) 2.3 K/uL (1.0-4.8); LYMPHOCYTES % (AUTO) 40.1 % (22.0-44.0); MEAN CORPUSCULAR HEMOGLOBIN 28.1 pg (26.0-34.0); MEAN CORPUSCULAR HGB CONC 32.7 G/dL (31.0-37.0); MEAN CORPUSCULAR VOLUME 86 fL (80-100); MONOCYTES # (AUTO) 0.5 K/uL (0.1-1.0); MONOCYTES % (AUTO) 8.4 % (2.0-9.0); NEUTROPHILS # (AUTO) 2.7 K/uL (1.8-7.7); NEUTROPHILS % (AUTO) 47.3 % (40.0-70.0); PLATELET COUNT (AUTO) 416 K/uL (150-450); RED BLOOD CELL COUNT(AUTO) 4.35 MIL/uL (4.00-5.20); RED CELL DISTRIBUTION WIDTH 13.7 % (11.5-14.5); WHITE BLOOD COUNT (AUTO) 5.7 K/uL (4.5-11.0)
[2024-08-17 22:39] LABS: ANION GAP 1 mmol/L (8-16); CALCIUM, TOTAL 8.6 mg/dL (8.8-10.5); CARBON DIOXIDE 33 mmol/L (22-29); CHLORIDE 103 mmol/L (98-107); CREATININE 0.72 mg/dL (0.60-1.30); GLOMERULAR FILTR. RATE CALC > 60 mL/min (>60); GLUCOSE,RANDOM 99 mg/dL (70-110); POTASSIUM 4.8 mmol/L (3.5-5.1); SODIUM SERUM 137 mmol/L (136-145); UREA NITROGEN, BLOOD 17 mg/dL (7-18)
[2024-08-17 23:03] LABS: ALCOHOL, BLOOD (SERUM) < 3 mg/dL (0-10)
[2024-08-18] MEDS ORDERED: ZOLPIDEM TARTRATE 10 MG TABLET PO PRN (00:15)
[2024-08-18] MEDS ORDERED: HALOPERIDOL 5 MG TABLET PO PRN (00:15)
[2024-08-18 02:44] VITALS: BP 110/67; PULSE 61; RESP 18; TEMP 98; O2SAT 98
[2024-08-18 02:45] VITALS: BP 110/67; PULSE 61; RESP 18; TEMP 98; O2SAT 98
[2024-08-18 08:30] VITALS: RESP 16
[2024-08-18] MEDS: DIVALPROEX SODIUM 500 MG DR TABLET PO SCH (10:29)
[2024-08-18] MEDS: FLUoxetine HCL 20 MG CAPSULE PO SCH (10:29)
[2024-08-18] MEDS ORDERED: MELATONIN 5 MG TABLET PO PRN (13:00)
[2024-08-18] MEDS ORDERED: MAG HYDROX/ALUMINUM HYD/SIMETH ES 30 ML SUSPENSION UDCUP PO PRN (13:00)
[2024-08-18] MEDS ORDERED: CloNIDine HCL 0.1 MG TABLET PO PRN (13:00)
[2024-08-18] MEDS ORDERED: DOCUSATE SODIUM 100 MG CAPSULE PO PRN (13:00)
[2024-08-18] MEDS ORDERED: PETROLATUM,WHITE 28 GM JELLY TP PRN (13:00)
[2024-08-18] MEDS ORDERED: ONDANSETRON 4 MG TABLET PO PRN (13:00)
[2024-08-18] MEDS ORDERED: ACETAMINOPHEN 325 MG TABLET PO PRN (13:00)
[2024-08-18] MEDS ORDERED: GuaiFENesin/D-METHORPHAN [SUGAR-FREE] 200-20MG/10 ML SYRUP UDCUP PO PRN (13:00)
[2024-08-18] MEDS ORDERED: NICOTINE 14 MG/24 HOUR PATCH TD PRN (13:00)
[2024-08-18] MEDS ORDERED: LOPERAMIDE HCL 2 MG CAPSULE PO PRN (13:00)
[2024-08-18] MEDS ORDERED: MAGNESIUM HYDROXIDE SUSPENSION 30 ML UDCUP PO PRN (13:00)
[2024-08-18] MEDS ORDERED: ALBUTEROL SULFATE HFA 90 MCG/PUFF 8 GM INHALER IH PRN (13:00)
[2024-08-18] MEDS: OXcarbazepine 300 MG TABLET PO SCH (17:15)
[2024-08-18] MEDS: OLANZapine 5 MG RAPDIS TABLET PO SCH (20:38)
[2024-08-18] MEDS: LORazepam 2 MG TABLET PO PRN (20:38)
[2024-08-18 20:44] VITALS: RESP 16
[2024-08-19 09:14] LABS: HEMOGLOBIN A1C 5.3 % (3.8-5.6)
[2024-08-19 09:26] LABS: THYROID STIMULATING HORMONE 0.86 uIU/mL (0.36-3.74)
[2024-08-19 22:37] VITALS: BP 103/65; PULSE 62; RESP 16; TEMP 97.4
[2024-08-20 08:23] VITALS: RESP 16
[2024-08-20 10:27] VITALS: RESP 16
[2024-08-20 13:36] VITALS: RESP 17
[2024-08-20 20:21] VITALS: BP 110/70; PULSE 91; RESP 18; TEMP 97.8; O2SAT 97
[2024-08-20 22:16] VITALS: BP 110/70; PULSE 91; RESP 18; TEMP 97.8; O2SAT 97
[2024-08-21 08:26] VITALS: BP 123/68; PULSE 86; RESP 18; TEMP 97.9; O2SAT 98
[2024-08-21 20:19] VITALS: BP 114/57; PULSE 99; RESP 17; TEMP 97.7; O2SAT 97
[2024-08-22 08:39] VITALS: BP 121/66; PULSE 83; RESP 16; TEMP 97.4; O2SAT 97
[2024-08-22 20:26] VITALS: BP 115/64; PULSE 87; RESP 18; TEMP 97.2; O2SAT 99
[2024-08-23 08:13] VITALS: BP 97/60; PULSE 75; RESP 18; TEMP 97.1; O2SAT 97
[2024-08-23 20:00] VITALS: BP 101/59; PULSE 88; RESP 17; TEMP 98.5; O2SAT 98
[2024-08-24 10:31] VITALS: BP 105/65; PULSE 71; RESP 16; TEMP 97.3; O2SAT 97
[2024-08-24 20:27] VITALS: BP 108/67; PULSE 82; RESP 16; TEMP 98.6; O2SAT 97
[2024-08-25 08:29] VITALS: BP 126/82; PULSE 76; RESP 16; TEMP 96.8; O2SAT 98
[2024-08-25 20:14] VITALS: BP 108/69; PULSE 82; RESP 18; TEMP 97.5; O2SAT 96
[2024-08-26 08:29] VITALS: BP 90/54; PULSE 71; RESP 16; TEMP 97.9; O2SAT 98
[2024-08-26 14:48] VITALS: BP 109/61; PULSE 78; RESP 18
[2024-08-26 20:11] VITALS: BP 109/68; PULSE 75; RESP 17; TEMP 97.6; O2SAT 99
[2024-08-27 08:24] VITALS: BP 100/60; PULSE 67; RESP 16; TEMP 97.6; O2SAT 98
[2024-08-27 20:00] VITALS: BP 107/60; PULSE 73; RESP 16; TEMP 97.8; O2SAT 97
[2024-08-28 08:33] VITALS: BP 98/53; PULSE 81; RESP 16; TEMP 97.6; O2SAT 97
[2024-08-28 20:00] VITALS: BP 92/51; PULSE 69; RESP 16; TEMP 97.4; O2SAT 98
[2024-08-29 10:13] VITALS: BP 114/54; PULSE 83; RESP 18; TEMP 98.2; O2SAT 99
[2024-08-29 20:21] VITALS: BP 105/61; PULSE 81; RESP 18; TEMP 97.5; O2SAT 97
[2024-08-30 08:39] VITALS: BP 114/66; PULSE 79; RESP 16; TEMP 98; O2SAT 99
[2024-08-30] MEDS ORDERED: DIVA-112 PO (16:15)
[2024-08-30] MEDS ORDERED: OLAN10TA26 PO (16:15)
[2024-08-30] MEDS ORDERED: FLUO-418 PO (16:15)
== END 2024-08-30 17:35 | disposition home or self-care (01) | DRG 750 ==
LOC: EMS 20:25 → B3A 08-18 00:57
PROVIDERS: ADMIT Psychiatry & Neurology Psychiatry; ATTEND Psychiatry & Neurology Psychiatry
PROC: GZHZZZZ Group Psychotherapy (ICD-10-PCS; principal; 2024-08-19)
PROC: GZ52ZZZ Individual Psychotherapy, Cognitive (ICD-10-PCS; 2024-08-19)
DX: F25.1 Schizoaffective disorder, depressive type (principal); G40.909 Epilepsy, unspecified, not intractable, without status epilepticus; R45.851 Suicidal ideations; F15.10 Other stimulant abuse, uncomplicated; I10 Essential (primary) hypertension; Z20.822 Contact with and (suspected) exposure to COVID-19; F41.9 Anxiety disorder, unspecified; F31.9 Bipolar disorder, unspecified; Z59.00 Homelessness unspecified; Z79.899 Other long term (current) drug therapy; Z87.891 Personal history of nicotine dependence; Z88.5 Allergy status to narcotic agent; Z91.148 Patient's other noncompliance with medication regimen for other reason; Z88.8 Allergy status to other drugs, medicaments and biological substances; E78.5 Hyperlipidemia, unspecified; E66.3 Overweight; Z68.27 Body mass index [BMI] 27.0-27.9, adult
CPT/HCPCS: 80048; 80061; 80164; 80307; 83036; 84443; 84703; 85025; 99285; G0480

== ENCOUNTER 2024-10-20 11:53 | Emergency (ER) | payer MEDICAID, OTHER ==
[~2024-10-20] VITALS: Ht 172.7 cm; Wt 72.7 kg
[~2024-10-20 11:53] MED LIST changes: +DIVA-112 PO; -FLUO-177 PO; -MELA5TAB40 PO; -NALT50TA33 PO; +OLAN10TA26 PO; -OLAN5TAB94 PO; -OXCA300T28 PO; -PRAZ1 PO; -VALP250C48 PO; -VALP250S23 PO
[2024-10-20 12:51] VITALS: TEMP 97.2
[2024-10-20] MEDS: TraMADol HCL 50 MG TABLET PO ONE (13:49)
[2024-10-20 17:00] VITALS: BP 120/79; PULSE 79; RESP 16; O2SAT 100
== END 2024-10-20 17:01 | disposition home or self-care (01) ==
LOC: EMS 11:55
DX: S92.512A Displaced fracture of proximal phalanx of left lesser toe(s), initial encounter for closed fracture (principal); R51.9 Headache, unspecified; F17.210 Nicotine dependence, cigarettes, uncomplicated; I10 Essential (primary) hypertension; F20.9 Schizophrenia, unspecified; E78.00 Pure hypercholesterolemia, unspecified; F41.9 Anxiety disorder, unspecified; F32.A Depression, unspecified; Z79.899 Other long term (current) drug therapy; Z88.5 Allergy status to narcotic agent; Z88.6 Allergy status to analgesic agent; Z59.00 Homelessness unspecified; X58.XXXA Exposure to other specified factors, initial encounter; Y93.89 Activity, other specified; Y92.89 Other specified places as the place of occurrence of the external cause; Y99.8 Other external cause status
CPT/HCPCS: 99283

== ENCOUNTER 2025-01-24 02:46 | Inpatient (IN) | payer MEDICAID ==
[~2025-01-24] VITALS: Ht 152.4 cm; Wt 66.4 kg
[2025-01-24] MEDS ORDERED: ZOLPIDEM TARTRATE 10 MG TABLET PO PRN (03:45)
[2025-01-24 04:21] VITALS: BP 132/76; PULSE 78; RESP 16; TEMP 96.7; O2SAT 99
[2025-01-24 04:43] VITALS: BP 132/76; PULSE 78; RESP 16; TEMP 96.7; O2SAT 99
[2025-01-24] MEDS ORDERED: PNEUMOCOCCAL VACCINE POLYVALENT 0.5 ML SYRINGE [PPSV23] IM. ONE (05:30)
[2025-01-24] MEDS ORDERED: DOCUSATE SODIUM 100 MG CAPSULE PO PRN (08:45)
[2025-01-24] MEDS ORDERED: PETROLATUM,WHITE 28 GM JELLY TP PRN (08:45)
[2025-01-24] MEDS ORDERED: OMEPRAZOLE 20 MG CAPSULE PO PRN (08:45)
[2025-01-24] MEDS ORDERED: MAGNESIUM HYDROXIDE SUSPENSION 30 ML UDCUP PO PRN (08:45)
[2025-01-24] MEDS ORDERED: ALBUTEROL SULFATE HFA 90 MCG/PUFF 8 GM INHALER IH PRN (08:45)
[2025-01-24] MEDS ORDERED: ACETAMINOPHEN 325 MG TABLET PO PRN (08:45)
[2025-01-24] MEDS ORDERED: ONDANSETRON 4 MG TABLET PO PRN (08:45)
[2025-01-24] MEDS ORDERED: MAG HYDROX/ALUMINUM HYD/SIMETH ES 30 ML SUSPENSION UDCUP PO PRN (08:45)
[2025-01-24] MEDS ORDERED: LOPERAMIDE HCL 2 MG CAPSULE PO PRN (08:45)
[2025-01-24] MEDS ORDERED: BACITRACIN 28 GM OINTMENT TP PRN (08:45)
[2025-01-24] MEDS ORDERED: BENZOCAINE/MENTHOL [CEPACOL] LOZENGE PO PRN (08:45)
[2025-01-24 08:46] VITALS: BP 99/76; PULSE 80; RESP 18; TEMP 98.9; O2SAT 100
[2025-01-24] MEDS: DIVALPROEX SODIUM 500 MG DR TABLET PO SCH (16:45)
[2025-01-24] MEDS: LITHIUM CARBONATE 300 MG CAPSULE PO SCH (16:45)
[2025-01-24 20:22] VITALS: RESP 17
[2025-01-25 08:15] VITALS: BP 100/60; PULSE 92; RESP 18; TEMP 98; O2SAT 100
[2025-01-25 08:42] LABS: PLATELET COUNT (AUTO) 295 K/uL (150-450); RED BLOOD CELL COUNT(AUTO) 4.03 MIL/uL (4.00-5.20); RED CELL DISTRIBUTION WIDTH 14.1 % (11.5-14.5); WHITE BLOOD COUNT (AUTO) 3.7 K/uL (4.5-11.0)
[2025-01-25 09:08] LABS: ASPARTATE AMINOTRANSFERASE 27 U/L (15-37); CALCIUM, TOTAL 7.9 mg/dL (8.8-10.5); CHOL/HDL RATIO 1.8 (3.9-5.7); CREATININE 0.63 mg/dL (0.60-1.30); GLOMERULAR FILTR. RATE CALC > 60 mL/min (>60); GLUCOSE,RANDOM 87 mg/dL (70-110); HCG,QUANTITATIVE < 1 mIU/mL (0-6); LDL CHOL (CALC.) 34 mg/dL (0-130); SODIUM SERUM 137 mmol/L (136-145); TOTAL PROTEIN, SERUM 6.4 g/dL (6.4-8.2); UREA NITROGEN, BLOOD 8 mg/dL (7-18)
[2025-01-25 09:10] LABS: APPEARANCE,URINE CLEAR (CLEAR); GLUCOSE, URINE (UA) NEGATIVE (NEGATIVE); LEUKOCYTE ESTERASE ,URINE MODERATE (NEGATIVE); NITRATE,URINE NEGATIVE (NEGATIVE); OCCULT BLOOD,URINE NEGATIVE (NEGATIVE); PH,URINE DRUG SCREEN 8.0 (5.0-8.0); SPECIFIC GRAVITIY, URINE 1.005 (1.003-1.030)
[2025-01-25 09:26] LABS: SQUAMOUS EPITHELIAL CELL,UR Few /LPF (None Seen)
[2025-01-25 09:27] LABS: ALCOHOL, URINE DRUG SCREEN NEGATIVE (NEGATIVE); AMPHET/METH SCREEN,URINE POSITIVE (NEGATIVE); BARBITURATE SCREEN, URINE NEGATIVE (NEGATIVE); CANNABINOID SCREEN,URINE NEGATIVE (NEGATIVE); COCAINE SCREEN,URINE NEGATIVE (NEGATIVE); METHADONE SCREEN, URINE NEGATIVE (NEGATIVE)
[2025-01-25 20:26] VITALS: BP 115/88; PULSE 90; RESP 18; TEMP 97.8; O2SAT 98
[2025-01-25] MEDS: PRAZOSIN HCL 5 MG CAPSULE PO SCH (20:49)
[2025-01-26 08:44] VITALS: RESP 18
[2025-01-26 20:23] VITALS: RESP 19
[2025-01-27 08:26] VITALS: BP 100/60; PULSE 92; RESP 17; TEMP 97.3; O2SAT 97
[2025-01-27 10:31] LABS: GLUCOMETER DEV NAME(LOC) POC.BV; POC SARS-COV2 AG, FIA NEGATIVE (NEGATIVE)
[2025-01-28 08:39] VITALS: BP 104/60; PULSE 92; RESP 16; TEMP 98.7; O2SAT 99
[2025-01-28 09:41] LABS: VALPROIC ACID 50.0 mcg/mL (50-100)
[2025-01-28] MEDS ORDERED: PRAZ5 PO (15:59)
[2025-01-28] MEDS ORDERED: LITH300C3 PO (15:59)
[2025-01-28 20:10] VITALS: BP 118/82; PULSE 84; RESP 18; TEMP 97.9; O2SAT 95
== END 2025-01-28 17:30 | disposition home or self-care (01) | DRG 750 ==
LOC: B2S 03:42
PROVIDERS: ADMIT Psychiatry & Neurology Psychiatry; ATTEND Psychiatry & Neurology Psychiatry
PROC: GZHZZZZ Group Psychotherapy (ICD-10-PCS; principal; 2025-01-27)
PROC: GZ56ZZZ Individual Psychotherapy, Supportive (ICD-10-PCS; 2025-01-27)
DX: F20.9 Schizophrenia, unspecified (principal); F10.90 Alcohol use, unspecified, uncomplicated; F41.9 Anxiety disorder, unspecified; G47.00 Insomnia, unspecified; K59.00 Constipation, unspecified; F12.90 Cannabis use, unspecified, uncomplicated; Z20.822 Contact with and (suspected) exposure to COVID-19; Y90.9 Presence of alcohol in blood, level not specified; F32.A Depression, unspecified; Z72.0 Tobacco use
CPT/HCPCS: 80053; 80061; 80164; 80178; 80307; 81001; 83036; 84436; 84443; 84702; 84703; 85025; 87340